=== PATIENT | male | born 1935 | race Two or more races ===

== ENCOUNTER 2018-11-28 08:12 | Outpatient (CLI) | payer OTHER | END 2018-11-28 08:20 | disposition home or self-care (01) | LOC: LAB 08:12 | DX: C61 Malignant neoplasm of prostate (principal) ==

== ENCOUNTER 2018-11-28 10:05 | Outpatient (CLI) | payer OTHER | END 2018-11-28 10:18 | disposition home or self-care (01) | LOC: NUCLEAR 10:05 | DX: C61 Malignant neoplasm of prostate (principal) | CPT/HCPCS: 78306; 78320; A9503 ==

== ENCOUNTER 2019-03-07 07:28 | Outpatient (CLI) | payer OTHER | END 2019-03-07 08:48 | disposition home or self-care (01) | LOC: TOM 07:28 | DX: C61 Malignant neoplasm of prostate (principal) ==